=== PATIENT | male | born 1965 | race African-American/Black ===

== ENCOUNTER 2024-02-26 08:14 | Emergency (ER) | payer MEDICARE, MEDICAID ==
[~2024-02-26] VITALS: Ht 182.9 cm; Wt 100.0 kg
[2024-02-26 08:18] VITALS: O2SAT 97
[2024-02-26 08:33] VITALS: TEMP 36.72516; O2SAT 98
[2024-02-26 08:44] LABS: CHLORIDE 105 mEq/L (98-107); POTASSIUM 4.7 mEq/L (3.5-5.1); SODIUM 135 mEq/L (136-145)
[2024-02-26 08:45] LABS: CARBON DIOXIDE 23 mEq/L (21-32)
[2024-02-26 08:50] LABS: CREATININE 1.2 mg/dL (0.6-1.3); GLUCOSE 170 mg/dL (70-105)
[2024-02-26 08:51] LABS: UREA NITROGEN BLOOD 15 mg/dL (9-23)
[2024-02-26 08:58] LABS: BASOPHILS % 0.4 % (0.0-2.0); EOSINOPHILS % 1.4 % (0.0-5.0); HEMATOCRIT. 43.5 % (42.0-52.0); HEMOGLOBIN. 13.9 g/dL (14.0-18.0); LYMPHOCYTES % 15.5 % (20.0-50.0); MEAN CORPUSCULAR HEMOGLOBIN 27.4 pg (28.0-32.0); MEAN CORPUSCULAR HGB CONC 31.9 g/dL (31.0-37.0); MEAN CORPUSCULAR VOLUME 85.8 fL (80.0-94.0); MEAN PLATELET VOLUME 11.3 fl (7.4-10.4); MONOCYTES % 6.7 % (2.0-8.0); PLATELET 140 x1000/uL (130-400); RED BLOOD CELL COUNT 5.07 mill/uL (4.7-6.1); RED CELL DISTRIBUTION WIDTH 15.7 % (11.6-14.6)
[2024-02-26 09:26] LABS: ETHANOL BLOOD < 10 mg/dL (<10)
[2024-02-26 09:28] VITALS: BP 139/80; PULSE 87; RESP 22; TEMP 98.1
[2024-02-26] MEDS: LEVETIRACETAM 500MG TABLET PO STA (10:51)
== END 2024-02-26 11:09 | disposition home or self-care (01) ==
LOC: ER 08:21
DX: G40.909 Epilepsy, unspecified, not intractable, without status epilepticus (principal); E11.9 Type 2 diabetes mellitus without complications; Z86.73 Personal history of transient ischemic attack (TIA), and cerebral infarction without residual deficits; Z98.890 Other specified postprocedural states
CPT/HCPCS: 36415; 80048; 80320; 85025; 99283; G0480